=== PATIENT | female | born 1955 | race Caucasian/White ===

== ENCOUNTER → 2017-04-06 | Outpatient (CLI) | payer OTHER ==
[~2017-04-06] MED LIST: LVXUNK
--- NOTE | 2017-04-07 14:04 | MAMMOGRAPHY REPORT ---
BILATERAL DIGITAL SCREENING MAMMOGRAM TOMOSYNTHESIS WITH CAD: 04/06/2017 CLINICAL HISTORY: Routine screening examination. TECHNIQUE: Breast tomosynthesis in addition to standard 2D mammography was performed. Current study was also evaluated with a Computer Aided Detection (CAD) system. COMPARISON: Comparison is made to exams dated: 03/17/2016 ultrasound, 03/17/2016 mammogram, 03/10/2016 mammogram, 03/06/2015 mammogram, 03/05/2014 mammogram, and 02/23/2013 mammogram - [facility] enter. BREAST COMPOSITION: There are scattered areas of fibroglandular density in both breasts. FINDINGS: There is a possible new cluster of microcalcifications in the 12:00 anterior/subareolar le ft breast, for which additional spot magnification views are recommended. There are multiple bilateral circumscribed masses in both breasts, most likely representing cysts and fibrocystic changes. No suspicious spiculated or irregular mass, architectural distortion or other cluster of microcalcifi cations is seen. IMPRESSION: ACR BI-RADS CATEGORY 0: INCOMPLETE EVALUATION: NEED ADDITIONAL IMAGING EVALUATION The possible new cluster of microcalcifications in the left breast needs additional evaluation. The patient will be called to schedule an appointment. Approximately 10% of breast cancers are not detected with mammography. A negative mammographic report should not delay biopsy if a clinically suggestive mass is present. Neisha Hale M.D. ay/:04/06/2017 15:37:07 Hr Advisor: Dora GAUTAM(Scar)(M), [facility] letter sent: Addl Imaging 0 BI-RADS Code: ACR BI-RADS Category 0: Incomplete Evaluation: Need Additional Imaging Evaluation
== END | disposition home or self-care (01) ==
LOC: C.MAMM 14:16
PROVIDERS: ATTEND Nurse Practitioner Adult Health
DX: Z12.31 Encounter for screening mammogram for malignant neoplasm of breast (principal); R92.8 Other abnormal and inconclusive findings on diagnostic imaging of breast

== ENCOUNTER → 2017-04-20 | Outpatient (CLI) | payer OTHER ==
--- NOTE | 2017-04-20 14:15 | MAMMOGRAPHY REPORT ---
UNILATERAL LEFT DIGITAL DIAGNOSTIC MAMMOGRAM: 04/20/2017 CLINICAL HISTORY: Callback from screening mammogram for left breast calcifications. TECHNIQUE: Spot magnification left CC and ML views were obtained. COMPARISON: Comparison is made to exams dated: 04/06/2017 mammogram, 03/10/2016 mammogram, 03/06/2015 m ammogram, 03/05/2014 mammogram, 02/23/2013 mammogram, and 10/07/2011 mammogram - [facility]. BREAST COMPOSITION: The tissue of the left breast is heterogeneously dense, which may obscure small masses. FINDINGS: Spot magnification views of the left breast demonstrate a small 3 mm cluster of punctate ca lcifications in the left 12:00 breast anteriorly. The calcifications were not clearly seen on prior exams, therefore, they are indeterminant and stereotactic biopsy is recommended for further evaluatio n. IMPRESSION: ACR BI-RADS CATEGORY 4: SUSPICIOUS Newly visualized small 3 mm cluster of calcifications in the left 12:00 breast. The calcifications a re indeterminate and stereotactic biopsy is recommended for further evaluation. A phone call was made to the physician's office to confirm faxed results were received. The patient has been verbally notified of the results. She tentatively scheduled the biopsy before leaving the [facility]. Approximately 10% of breast cancers are not detected with mammography. A negative mammographic report should not delay biopsy if a clinically suggestive mass is present. Eunice Goyal M.D. /:04/20/2017 11:50:33 Pattern Chain Maker Supervisor: Lamar GAUTAM(Scar)([place]), [facility] letter sent: Abnormal 4/5 BI-RADS Code: ACR BI-RADS Category 4: Suspicious
== END | disposition home or self-care (01) ==
LOC: C.MAMM 11:22
PROVIDERS: ATTEND Nurse Practitioner Adult Health
DX: R92.1 Mammographic calcification found on diagnostic imaging of breast (principal)

== ENCOUNTER → 2017-04-28 | Outpatient (CLI) | payer OTHER ==
--- NOTE | 2017-04-28 09:33 | Discharge Instructions ---
Discharge Instructions Procedure Procedure Date: Apr 28, 2017. Reason for visit: Left Calcs. Discharge Discharge Date: Apr 28, 2017. Discharge Diagnosis: status post breast biopsy Instructions Activity Recommendations: Additional Limitations (see below) Return to School/Work: no limitations Recommended Home Diet: No Limitations Provider Instructions: ACTIVITY RECOMMENDATIONS: * No lifting, pushing, pulling or exercising the affected side for three days. RETURN TO SCHOOL/WORK: * You may return to work/school after the procedure, but do not perform any strenuous activities for 24 to 48 hours. MEDICATIONS: * Tylenol (two 325 mg) every four to six hours if needed for mild pain (if not allergic to Tylenol). DIET: * Resume previous diet. SPECIAL CARE INSTRUCTIONS: * Keep biopsy site dry for 24 hours. May shower after 24 hours, but do not soak (bathe) incision. * May remove Tegaderm (plastic patch) tomorrow AFTER showering. * Leave the steri-strips on for one week. Allow the steri-strips to fall off by themselves. If not off after one week, you may remove them. You may place a Bandaid crosswise over the strips, if desired. * Apply ice 10 minutes on and 10 minutes off as needed. * Wear a bra at bedtime to sleep more comfortably for 2-3 days. * Your referring physician should have the results after approximately 5 to 7 business days. * Call for unusual bleeding, fever, drainage, etc or if you have any questions call during normal business hours or after hours call Dr Goyal, . FOLLOW UP VISIT: Follow-up with Referring Physician as scheduled. Allergies Coded Allergies: Penicillins (Unverified Allergy, Mild, UNK, 09/26/09) Mick High Recommendations: Call your doctor if: * Temperature above 101 degrees * Pain not relieved by pain medicine ordered * There is increased drainage or redness from any incision * You have any unanswered questions or concerns. Your Doctors Instructions noted above were prepared by provider Eunice Goyal. Patient Signature Section: Patient Instructions Signature Page Usha Martinez Patient (or Guardian) Signature/Date: I have read and understand the instructions given to me by my caregivers. Caregiver/RN/Doctor Signature/Date: The above-named patient and/or guardian has received patient instructions on this date. + Original Patient Signature Page (only) stays with chart. Please make copy for patient.
--- NOTE | 2017-04-28 12:43 | MAMMOGRAPHY REPORT ---
THIS REPORT HAS BEEN AMENDED. STEREOTACTIC GUIDED BIOPSY LEFT BREAST: 04/28/2017 CLINICAL HISTORY: Left 12:00 breast calcifications. PATIENT CONSENT: The procedure, risks, benefits, and alternatives of stereotactic biopsy with clip pl acement were discussed with the patient, and verbal and written consent was obtained. A timeout was performed immediately prior to the procedure. PROCEDURE DESCRIPTION: With stereotactic guidance, aseptic technique, and lidocaine as a local anesth etic (1% lidocaine to anesthetize the skin and 1% lidocaine with epinephrine to anesthetize the deepe r tissues), the area of concern in the left 12:00 breast was sampled multiple times with a 9-gauge va cuum-assisted biopsy needle (SurOLX Eviva). The path of approach was craniocaudal. The specimen radi ograph demonstrates calcifications to be present in the samples. A metallic marker clip was placed a t the biopsy site. This was confirmed on postprocedure mammograms. Direct pressure was applied at t he biopsy site and hemostasis was readily achieved. The patient tolerated the procedure without comp lication. She was given wound care instructions. COMPARISON: Comparison is made to exams dated: 04/20/2017 mammogram, 04/06/2017 mammogram, 03/17/2016 u ltrasound, 03/17/2016 mammogram, 03/10/2016 mammogram, and 03/06/2015 mammogram - [facility]. IMPRESSION: STEREOTACTIC GUIDED BIOPSY Stereotactic biopsy of indeterminate calcifications in the left 12:00 breast, with clip placement. T he patient will receive pathology results from her referring provider. Eunice Goyal M.D. ah/:04/28/2017 09:34:01 Upholstery Mechanic: Dora Hanson, [facility] AMENDMENT: 05/04/2017 Eunice Goyal M.D. Pathology from stereotactic biopsy of left 12:00 calcifications was reviewed on 05/04/2017. Pathology shows DCIS intermediate grade, which is concordant with the imaging findings. Recommend surgical co nsultation. Also consider preoperative bilateral breast MRI given nodular, dense breasts mammographi tiff.
--- NOTE | 2017-04-28 12:43 | MAMMOGRAPHY REPORT ---
UNILATERAL LEFT DIGITAL DIAGNOSTIC MAMMOGRAM: 04/28/2017 CLINICAL HISTORY: Status post left breast stereotactic biopsy. TECHNIQUE: Postprocedural left CC and ML views are obtained. COMPARISON: Comparison is made to exams dated: 04/20/2017 mammogram, 04/06/2017 mammogram, 03/17/2016 u ltrasound, 03/17/2016 mammogram, 03/10/2016 mammogram, and 03/06/2015 mammogram - [facility]. BREAST COMPOSITION: The tissue of the left breast is heterogeneously dense, which may obscure small masses. FINDINGS: Post procedural left CC and ML views were obtained. A new biopsy marker clip is seen at t he site of the biopsied calcifications in the left 12:00 breast. No significant postbiopsy hematoma is seen. IMPRESSION: POST PROCEDURE IMAGING FOR MARKER PLACEMENT New biopsy marker clip status post left breast stereotactic biopsy. Pathology results are pending. Approximately 10% of breast cancers are not detected with mammography. A negative mammographic report should not delay biopsy if a clinically suggestive mass is present. Eunice Goyal M.D. ah/:04/28/2017 09:42:49 Collar Pointer: Dora Hanson [facility] BI-RADS Code: Post Procedure Imaging For Marker Placement
== END | disposition home or self-care (01) ==
LOC: C.MAMM 08:49
PROVIDERS: ATTEND Nurse Practitioner Adult Health
DX: R92.0 Mammographic microcalcification found on diagnostic imaging of breast (principal); D05.92 Unspecified type of carcinoma in situ of left breast

== ENCOUNTER → 2017-06-06 | Outpatient (CLI) | payer OTHER | END | disposition home or self-care (01) | LOC: C.MAMM 14:00 | PROVIDERS: ATTEND Surgery | DX: Z13.820 Encounter for screening for osteoporosis (principal); C50.919 Malignant neoplasm of unspecified site of unspecified female breast; M85.88 Other specified disorders of bone density and structure, other site; M85.852 Other specified disorders of bone density and structure, left thigh; M81.0 Age-related osteoporosis without current pathological fracture ==

== ENCOUNTER → 2017-07-28 | Outpatient (CLI) | payer OTHER ==
[~2017-07-28] MED LIST changes: +ALBUAER INH; +COLLPOW10 PO; +FLUT0.15 NAE; +LEVO88TA PO; -LVXUNK; +MISC1CAP66 PO
[2017-07-28 10:42] LABS: BASO % 0.6 %; BASO ABS # 0.03 K/uL (0-0.2); COMPLETE YES; EOS % 3.2 %; LYMPH % 36.9 %; LYMPH ABS # 1.73 K/uL (1.2-3.4); MEAN CELL VOLUME 88.4 fL (80-100); MEAN CORPUSCULAR HEMOGLOBIN 29.7 pg (25-34); MEAN CORPUSCULAR HGB CONC 33.6 g/dl (32-36); MEAN PLATELET VOLUME 11.5 fL (7.4-10.4); MONO % 10.4 %; NEUT % 48.9 %; PLATELET COUNT 203 K/uL (130-400); RED BLOOD COUNT 5.09 M/uL (4.2-5.4); WHITE BLOOD COUNT 4.69 K/uL (4.8-10.8)
[2017-07-28 10:50] LABS: ALT/SGPT 38 U/L (12-78); AST/SGOT 20 U/L (15-37); BLOOD UREA NITROGEN 12 mg/dl (7-18); BUN/CREATININE RATIO 17.4 (10-20); CALCIUM 8.9 mg/dl (8.5-10.1); CARBON DIOXIDE 30 mmol/L (21-32); CHLORIDE 106 mmol/L (98-107); CREATININE 0.67 mg/dl (0.60-1.20); GLUCOSE 86 mg/dl (70-99); POTASSIUM 3.3 mmol/L (3.5-5.1); SODIUM 138 mmol/L (136-145)
[2017-07-28 11:01] LABS: ALB/GLOB RATIO 0.9 (0.9-2); ALKALINE PHOSPHATASE 77 U/L (45-117); CHOLESTEROL 172 mg/dl (0-200); CHOLESTEROL/HDL RATIO 2.7; HDL CHOLESTEROL 63 mg/dl; LDL CHOLESTEROL CALCULATED 88 mg/dl; TRIGLYCERIDES 104 mg/dl (0-150); VERY LOW DENSITY LIPOPROT CALC 21 mg/dl
== END | disposition home or self-care (01) ==
LOC: C.LABBC 07:42
PROVIDERS: ATTEND Family Medicine
DX: Z00.00 Encounter for general adult medical examination without abnormal findings (principal); E03.9 Hypothyroidism, unspecified; Z11.59 Encounter for screening for other viral diseases

== ENCOUNTER → 2017-08-02 | Outpatient (CLI) | payer OTHER | END | disposition home or self-care (01) | LOC: C.PAPS 08:51 | PROVIDERS: ATTEND Nurse Practitioner Adult Health | DX: Z12.4 Encounter for screening for malignant neoplasm of cervix (principal) ==

== ENCOUNTER → 2017-08-18 | Outpatient (CLI) | payer OTHER ==
[2017-08-18 16:52] LABS: BASO % 0.6 %; BASO ABS # 0.03 K/uL (0-0.2); COMPLETE YES; EOS % 1.8 %; HEMATOCRIT 43.7 % (37-47); IG% 0.2 %; LYMPH % 36.5 %; LYMPH ABS # 1.81 K/uL (1.2-3.4); MEAN CELL VOLUME 88.3 fL (80-100); MEAN CORPUSCULAR HEMOGLOBIN 29.9 pg (25-34); MEAN CORPUSCULAR HGB CONC 33.9 g/dl (32-36); MEAN PLATELET VOLUME 11.6 fL (7.4-10.4); MONO % 9.9 %; PLATELET COUNT 187 K/uL (130-400); RED BLOOD COUNT 4.95 M/uL (4.2-5.4); WHITE BLOOD COUNT 4.96 K/uL (4.8-10.8)
[2017-08-18 17:02] LABS: URINE APPEARANCE CLEAR (CLEAR); URINE BILIRUBIN NEG (NEG); URINE COLOR DK YELLOW; URINE NITRITE NEG (NEG); URINE SPECIFIC GRAVITY 1.027 (1.000-1.030); UROBILINOGEN NEG (NEG)
[2017-08-18 17:05] LABS: MANUAL MICROSCOPIC REQUIRED? NO; REVIEW REQ? NO
== END | disposition home or self-care (01) ==
LOC: C.LABBC 12:42
PROVIDERS: ATTEND Nurse Practitioner Adult Health
DX: R30.0 Dysuria (principal); D72.819 Decreased white blood cell count, unspecified; Z86.39 Personal history of other endocrine, nutritional and metabolic disease

== ENCOUNTER → 2017-12-13 | Outpatient (CLI) | payer OTHER ==
[2017-12-13 10:46] LABS: BASO % 0.9 %; BASO ABS # 0.04 K/uL (0-0.2); EOS ABS # 0.14 K/uL (0-0.5); HEMOGLOBIN 15.3 g/dL (12.0-16.0); IG# 0.01 K/uL (0.00-0.02); LYMPH % 36.9 %; LYMPH ABS # 1.71 K/uL (1.2-3.4); MEAN CORPUSCULAR HEMOGLOBIN 29.3 pg (25-34); MEAN CORPUSCULAR HGB CONC 33.3 g/dl (32-36); MEAN PLATELET VOLUME 11.3 fL (7.4-10.4); MONO % 10.6 %; MONO ABS # 0.49 K/uL (0.11-0.59); NEUT % 48.4 %; NEUT ABS # 2.25 K/uL (1.4-6.5); PLATELET COUNT 207 K/uL (130-400); RED CELL DISTRIBUTION WIDTH CV 13.1 % (11.5-14.5); WHITE BLOOD COUNT 4.64 K/uL (4.8-10.8)
[2017-12-13 11:02] LABS: ALBUMIN 3.7 gm/dl (3.4-5.0); ALT/SGPT 30 U/L (12-78); AST/SGOT 15 U/L (15-37); BLOOD UREA NITROGEN 15 mg/dl (7-18); CALCIUM 9.2 mg/dl (8.5-10.1); CARBON DIOXIDE 29 mmol/L (21-32); CREATININE 0.73 mg/dl (0.60-1.20); GLUCOSE 88 mg/dl (70-99); POTASSIUM 3.4 mmol/L (3.5-5.1); SODIUM 141 mmol/L (136-145)
[2017-12-13 11:06] LABS: ALKALINE PHOSPHATASE 89 U/L (45-117); TOTAL PROTEIN 7.7 gm/dl (6.4-8.2)
== END | disposition home or self-care (01) ==
LOC: C.LABBC 08:25
PROVIDERS: ATTEND Internal Medicine Hematology & Oncology
DX: D05.12 Intraductal carcinoma in situ of left breast (principal)

== ENCOUNTER → 2018-01-04 | Outpatient (CLI) | payer OTHER ==
[2018-01-04 11:50] LABS: BLOOD UREA NITROGEN 18 mg/dl (7-18); CREATININE 0.72 mg/dl (0.60-1.20)
== END | disposition home or self-care (01) ==
LOC: C.LABBC 09:11
PROVIDERS: ATTEND Surgery
DX: Z85.3 Personal history of malignant neoplasm of breast (principal)

== ENCOUNTER → 2018-01-09 | Outpatient (CLI) | payer OTHER ==
[~2018-01-09] MED LIST changes: +GADAVIST IV PRN
--- NOTE | 2018-01-10 13:17 | MAMMOGRAPHY REPORT ---
BREAST MRI OF BOTH BREASTS : 01/09/2018 CLINICAL HISTORY: 62-year-old woman with a history of intermediate grade DCIS diagnosed in the left b reast at 12:00 anteriorly in April 2017, status post excisional biopsy which yielded only atypia, no residual DCIS upon final excisional biopsy. Recently in November 2017, a surgical excision was perf ormed in the left axillary tail which yielded invasive lobular carcinoma with a positive margin. Pat ient also has heterogeneously dense and nodular breasts mammographically. Family history of breast c ancer. COMPARISON: Comparison is made to exams dated: 03/10/2016 mammogram, 03/17/2016 mammogram, 03/17/2016 u ltrasound, 04/06/2017 mammogram, 04/20/2017 mammogram, and 04/28/2017 mammogram - [facility] Oswald muhammad. TECHNIQUE: Using a 1.5 Claudia magnet and dedicated breast coil, multisequence axial images were obtain ed through the breasts. After uneventful IV administration of 6.5 mL of Gadavist, dynamic multiphase contrast-enhanced axial images, and sagittal postcontrast were obtained. Temporal subtraction axial images and 3-D MIP images are provided. Everything was then reviewed on a 3-D workstation, Outline App. FINDINGS: Right breast: There is minimal background parenchymal enhancement. There are numerous T2 hyperintens e, nonenhancing cysts in the right breast, the largest of which is located in the 7:[address] of the breast measuring 12 mm. No suspicious enhancing mass, non-mass enhancement, architectural distortion or suspicious kinetics identified in the right breast. No suspicious right axillary, subp ectoral or internal mammary lymphadenopathy. Left breast: There is mild background parenchymal enhancement of the left breast. There is evidence of prior surgeries within the left breast. There are foci of susceptibility artifact in the 12:00 an terior left breast, and expected architectural distortion, denoting the site of biopsy-proven interme diate grade DCIS, status post excision. There is no evidence of mass or non-mass enhancement at or n ear these surgical clips in the 12:00 anterior left breast to suggest residual disease. However, a s econd ovoid surgical cavity is seen in the 2:00 to 3:00 far posterior left breast oriented parallel t o the pectoralis muscle, measuring 15 x 43 x 22 mm and containing internal T2 hyperintense nonenhanci ng fluid compatible with postsurgical seroma and/or hematoma. There is faint enhancement surrounding this surgical cavity as well as non-mass enhancement that extends anteromedial and inferior from the surgical cavity at approximately 2:003:30 posteriorly, measuring 29 mm in AP dimension by 9 mm in t ransverse dimension, demonstrating persistent type kinetics (axial page 63/116). The non-mass enhanc ement surrounding the surgical cavity could represent residual disease and/or postsurgical change but the non-mass enhancement that extends braulio-inferior is more concerning for additional disease, par ticularly given positive margins noted at pathology. No suspicious left axillary, subpectoral or int ernal mammary lymphadenopathy identified. IMPRESSION: ACR BI-RADS CATEGORY 4: SUSPICIOUS 1. No MRI evidence of malignancy in the right breast. 2. Two prior lumpectomies evident in the left breast; the first in the 12:00 axis anteriorly in whic h there is no current abnormal mass or non-mass enhancement. The second lumpectomy site is in the 2:0 0 to 3:00 far posterior left breast, which demonstrates mild enhancement surrounding a 15 x 43 x 22 m m fluid collection at the surgical site, as well as non-mass enhancement that extends anteromedial an d inferior from the surgical site by at least 29 mm in AP dimension, and is concerning for additional disease, given the positive margins noted at pathology. 3. No suspicious axillary, subpectoral or internal mammary lymphadenopathy identified. Neisha Hale M.D. ay/:01/09/2018 21:42:43 Marine Fitter: leasing associate, [facility] letter sent: Abnormal 4/5 BI-RADS Code: ACR BI-RADS Category 4: Suspicious
== END | disposition home or self-care (01) ==
LOC: C.MRI 09:33
PROVIDERS: ATTEND Surgery
DX: D05.02 Lobular carcinoma in situ of left breast (principal)